=== PATIENT | female | born 1985 | race African-American/Black ===

== ENCOUNTER 2024-05-31 11:20 | Emergency (ER) | payer MEDICAID ==
[~2024-05-31] VITALS: Ht 170.2 cm; Wt 84.0 kg
[2024-05-31 11:22] VITALS: BP 137/106; PULSE 106; RESP 18; TEMP 36.8; O2SAT 100
== END 2024-05-31 11:49 | disposition left against medical advice (07) ==
LOC: ER 11:20
DX: M25.572 Pain in left ankle and joints of left foot (principal); W01.0XXA Fall on same level from slipping, tripping and stumbling without subsequent striking against object, initial encounter; Y93.89 Activity, other specified; Y92.89 Other specified places as the place of occurrence of the external cause; Y99.8 Other external cause status
CPT/HCPCS: 99283

== ENCOUNTER 2024-06-01 02:26 | Emergency (ER) | payer MEDICAID ==
[~2024-06-01] VITALS: Ht 167.6 cm; Wt 64.0 kg
[2024-06-01 02:38] VITALS: BP 149/91; PULSE 108; RESP 20; TEMP 36.7; O2SAT 97
== END 2024-06-01 02:48 | disposition left against medical advice (07) ==
LOC: ER 02:26
DX: J11.1 Influenza due to unidentified influenza virus with other respiratory manifestations (principal); Z53.21 Procedure and treatment not carried out due to patient leaving prior to being seen by health care provider

== ENCOUNTER 2024-06-13 15:58 | Emergency (ER) | payer MEDICAID ==
[~2024-06-13] VITALS: Ht 167.6 cm; Wt 75.0 kg
[~2024-06-13 15:58] MED LIST: ENOX40SY27 SQ; FURO-151 PO
[2024-06-13 16:03] VITALS: O2SAT 97
[2024-06-13 16:23] VITALS: BP 125/89; PULSE 101; RESP 14; TEMP 36.9; O2SAT 97
== END 2024-06-13 18:11 | disposition left against medical advice (07) ==
LOC: ER 15:58
DX: R26.2 Difficulty in walking, not elsewhere classified (principal); I50.9 Heart failure, unspecified; I25.10 Atherosclerotic heart disease of native coronary artery without angina pectoris; Z88.5 Allergy status to narcotic agent; Z53.21 Procedure and treatment not carried out due to patient leaving prior to being seen by health care provider
CPT/HCPCS: 99283

== ENCOUNTER 2024-06-19 11:18 | Emergency (ER) | payer OTHER ==
[~2024-06-19] VITALS: Ht 165.1 cm; Wt 68.0 kg
[2024-06-19 11:21] VITALS: TEMP 36.9; O2SAT 98
[2024-06-19] MEDS ORDERED: TOPUD PO (11:30)
[2024-06-19] MEDS: ACETAMINOPHEN 325MG TABLET PO ONE (11:54)
[2024-06-19 12:00] VITALS: BP 136/109; PULSE 95; RESP 16; O2SAT 100
== END 2024-06-19 11:59 | disposition home or self-care (01) ==
LOC: ER 11:18
DX: M54.9 Dorsalgia, unspecified (principal); Z88.5 Allergy status to narcotic agent; Z88.8 Allergy status to other drugs, medicaments and biological substances; Z98.890 Other specified postprocedural states; W01.0XXA Fall on same level from slipping, tripping and stumbling without subsequent striking against object, initial encounter; Y93.89 Activity, other specified; Y92.89 Other specified places as the place of occurrence of the external cause; Y99.8 Other external cause status
CPT/HCPCS: 99283

== ENCOUNTER 2024-06-19 19:04 | Emergency (ER) | payer MEDICAID, OTHER ==
[~2024-06-19] VITALS: Ht 167.6 cm; Wt 70.0 kg
[~2024-06-19 19:04] MED LIST changes: +TOPUD PO
[2024-06-19 19:11] VITALS: O2SAT 95
[2024-06-19] MEDS: ACETAMINOPHEN 500MG TABLET PO ONE (21:53)
[2024-06-19 22:41] LABS: CHLORIDE 106 mEq/L (98-107); POTASSIUM 3.7 mEq/L (3.5-5.1); SODIUM 141 mEq/L (136-145)
[2024-06-19 22:42] LABS: CALCIUM 8.4 mg/dL (8.7-10.4); CARBON DIOXIDE 22 mEq/L (21-32)
[2024-06-19 22:44] LABS: HEMATOCRIT 38.4 % (36.0-48.0); HEMOGLOBIN 11.9 g/dL (12.0-16.0); MEAN CORPUSCULAR HEMOGLOBIN 26.7 pg (28.0-32.0); PLATELET 237 x1000/uL (130-400); RED BLOOD CELL COUNT 4.47 mill/uL (4.2-5.4); RED CELL DISTRIBUTION WIDTH 19.8 % (11.6-14.6); WHITE BLOOD COUNT 7.4 x1000/uL (4.5-11.0)
[2024-06-19 22:47] LABS: CREATININE 0.9 mg/dL (0.6-1.0); GLUCOSE 81 mg/dL (70-105); UREA NITROGEN BLOOD 12 mg/dL (9-23)
[2024-06-19 22:49] LABS: CREATINE KINASE 322 IU/L (34-145)
[2024-06-19 22:51] LABS: HCG SCREEN NEGATIVE
[2024-06-19 23:12] VITALS: BP 130/76; PULSE 100; RESP 16; TEMP 37.1; O2SAT 95
[2024-06-25] MEDS ORDERED: LOSA25TA26 MT (10:31)
[2024-06-25] MEDS ORDERED: POTA-205 MT (10:31)
[2024-06-25] MEDS ORDERED: FURO-151 MT (10:31)
[2024-06-25] MEDS ORDERED: CARV12.545 MT (10:31)
== END 2024-06-20 00:33 | disposition home or self-care (01) ==
LOC: ER 19:04
DX: M79.10 Myalgia, unspecified site (principal); F19.90 Other psychoactive substance use, unspecified, uncomplicated; Z88.5 Allergy status to narcotic agent
CPT/HCPCS: 36415; 80048; 82550; 84703; 85027; 99283

== ENCOUNTER 2024-06-20 15:14 | Emergency (ER) | payer OTHER ==
[~2024-06-20] VITALS: Ht 165.1 cm; Wt 91.0 kg
[2024-06-20 15:26] VITALS: BP 154/114; PULSE 110; RESP 18; TEMP 37.1; O2SAT 100
[2024-06-25] MEDS ORDERED: FURO-151 MT (10:31)
[2024-06-25] MEDS ORDERED: CARV12.545 MT (10:31)
[2024-06-25] MEDS ORDERED: LOSA25TA26 MT (10:31)
[2024-06-25] MEDS ORDERED: POTA-205 MT (10:31)
== END 2024-06-20 21:19 | disposition left against medical advice (07) ==
LOC: ER 15:14
DX: I50.9 Heart failure, unspecified (principal); Z88.5 Allergy status to narcotic agent; Z88.6 Allergy status to analgesic agent; W18.30XA Fall on same level, unspecified, initial encounter; Y93.89 Activity, other specified; Y92.89 Other specified places as the place of occurrence of the external cause; Y99.8 Other external cause status
CPT/HCPCS: 71045; 99283

== ENCOUNTER 2024-06-21 06:15 | Inpatient (IN) | payer OTHER ==
[~2024-06-21] VITALS: Ht 172.7 cm; Wt 68.0 kg
[2024-06-21 06:17] VITALS: O2SAT 100
[2024-06-21] MEDS ORDERED: ENALAPRIL 2.5MG/2ML VIAL 2ML IV ONE (07:45)
[2024-06-21] MEDS: FUROSEMIDE 40MG/4ML VIAL IVP ONE (10:00)
[2024-06-21] MEDS: ENALAPRIL 1.25MG/ML VIAL 1ML IV NR (10:00)
[2024-06-21 11:57] VITALS: BP 142/102; PULSE 111; RESP 20; TEMP 37; O2SAT 96
[2024-06-21] MEDS: AMLODIPINE 10MG TABLET PO SCH (13:45)
[2024-06-21] MEDS ORDERED: CLONIDINE 0.1MG TABLET PO PRN (13:45)
[2024-06-21 16:28] VITALS: BP 106/73; PULSE 116; RESP 20; TEMP 37.1; O2SAT 96
[2024-06-21 18:25] LABS: BASOPHILS % 0.8 % (0.0-2.0); EOSINOPHILS % 0.2 % (0.0-5.0); HEMATOCRIT. 40.3 % (36.0-48.0); HEMOGLOBIN. 12.5 g/dL (12.0-16.0); LYMPHOCYTES % 12.6 % (20.0-50.0); MEAN CORPUSCULAR HEMOGLOBIN 26.6 pg (28.0-32.0); MEAN CORPUSCULAR VOLUME 85.9 fL (81.0-99.0); MEAN PLATELET VOLUME 9.2 fl (7.4-10.4); MONOCYTES % 13.2 % (2.0-8.0); NEUTROPHILS % 73.2 % (40.0-76.0); PLATELET 247 x1000/uL (130-400)
[2024-06-21 18:34] LABS: CHLORIDE 104 mEq/L (98-107); DIFFERENTIAL COMMENT 1; POTASSIUM 4.1 mEq/L (3.5-5.1); SODIUM 139 mEq/L (136-145)
[2024-06-21 18:35] LABS: CARBON DIOXIDE 22 mEq/L (21-32)
[2024-06-21 18:36] LABS: CALCIUM 8.1 mg/dL (8.7-10.4)
[2024-06-21 18:40] LABS: CREATININE 1.1 mg/dL (0.6-1.0); GLUCOSE 99 mg/dL (70-105); UREA NITROGEN BLOOD 17 mg/dL (9-23)
[2024-06-21 18:41] LABS: ETHANOL BLOOD < 10 mg/dL (<10)
[2024-06-21 18:48] LABS: TROPONIN I HIGH SENSITIVITY 90 ng/L (3.0-34)
[2024-06-21] MEDS: FUROSEMIDE 40MG TABLET PO SCH (18:59)
[2024-06-21] MEDS: ACETAMINOPHEN 325MG TABLET PO PRN (19:07)
[2024-06-21 19:11] VITALS: BP 106/43; PULSE 99; RESP 20; TEMP 36.6
[2024-06-21 20:38] VITALS: BP 115/66; PULSE 109; RESP 19; TEMP 37.8; O2SAT 94
[2024-06-22] VITALS (7 sets, daily range): BP systolic 116–155; BP diastolic 66–103; PULSE 57–111; RESP 16–20; TEMP 35.9–37.1; O2SAT 96–100
[2024-06-22] MEDS: GUAIFENESIN 200MG/10ML SUGAR FREE UDC PO PRN (13:45)
[2024-06-22] MEDS: LORAZEPAM 0.5MG TABLET PO PRN (13:45)
[2024-06-22] MEDS ORDERED: ONDANSETRON HCL 4MG/2ML INJ IV PRN (14:45)
[2024-06-22] MEDS ORDERED: ACETAMINOPHEN 325MG TABLET PO PRN (14:45)
[2024-06-22] MEDS ORDERED: FUROSEMIDE 40MG/4ML VIAL IVP SCH (21:00)
[2024-06-22] MEDS: ATORVASTATIN CALCIUM 40MG TABLET PO SCH (21:38)
[2024-06-23] VITALS: BP 112/87; PULSE 97; RESP 18; TEMP 36.8; O2SAT 98
[2024-06-23 03:54] VITALS: BP 121/87; PULSE 100; RESP 18; TEMP 36.4; O2SAT 100
[2024-06-23 08:00] VITALS: BP 122/83; PULSE 92; RESP 18; TEMP 36.4; O2SAT 97
[2024-06-23] MEDS: PANTOPRAZOLE SODIUM 40 MG/VIAL IV SCH (09:00)
[2024-06-23] MEDS: ENOXAPARIN 40MG/0.4ML SYR SUBCUT SCH (09:00)
[2024-06-23 09:21] VITALS: BP 122/83; PULSE 92; RESP 18; TEMP 36.4; O2SAT 97
[2024-06-23] MEDS: ASPIRIN 81MG TABLET PO SCH (09:22)
[2024-06-23 12:00] VITALS: BP 120/99; PULSE 92; TEMP 36.6; O2SAT 98
[2024-06-25] MEDS ORDERED: FURO-151 MT (10:31)
[2024-06-25] MEDS ORDERED: LOSA25TA26 MT (10:31)
[2024-06-25] MEDS ORDERED: POTA-205 MT (10:31)
[2024-06-25] MEDS ORDERED: CARV12.545 MT (10:31)
== END 2024-06-23 16:40 | disposition left against medical advice (07) | DRG 190 ==
LOC: ER 06:15 → 7WST 07:44 → EDBEDREQ 07:46 → EDBEDREQTM 07:46 → ENRESERV 08:17
PROVIDERS: ADMIT Internal Medicine; ATTEND Internal Medicine
DX: I21.4 Non-ST elevation (NSTEMI) myocardial infarction (principal); J96.01 Acute respiratory failure with hypoxia; N17.9 Acute kidney failure, unspecified; I50.9 Heart failure, unspecified; R26.89 Other abnormalities of gait and mobility; Z53.29 Procedure and treatment not carried out because of patient's decision for other reasons; E78.00 Pure hypercholesterolemia, unspecified; E11.40 Type 2 diabetes mellitus with diabetic neuropathy, unspecified; Z59.00 Homelessness unspecified; Z88.5 Allergy status to narcotic agent; Z88.8 Allergy status to other drugs, medicaments and biological substances; Z86.73 Personal history of transient ischemic attack (TIA), and cerebral infarction without residual deficits; Z91.148 Patient's other noncompliance with medication regimen for other reason; Z89.411 Acquired absence of right great toe
CPT/HCPCS: 36415; 71045; 73630; 80048; 80320; 83880; 84484; 85025; 93005; 93971; 97161; 99285; J1650; J2470; J3490; G0480

== ENCOUNTER 2024-07-29 20:48 | Inpatient (IN) | payer MEDICAID, OTHER ==
[~2024-07-29] VITALS: Ht 165.1 cm; Wt 59.0 kg
[~2024-07-29 20:48] MED LIST changes: +CARV12.545 MT; +FURO-151 MT; +LOSA25TA26 MT; +POTA-205 MT
[2024-07-29 20:49] VITALS: O2SAT 99
[2024-07-29 22:14] LABS: BASOPHILS % 0.4 % (0.0-2.0); EOSINOPHILS % 0.3 % (0.0-5.0); HEMATOCRIT. 37.2 % (36.0-48.0); LYMPHOCYTES % 25.6 % (20.0-50.0); MEAN CORPUSCULAR HEMOGLOBIN 24.6 pg (28.0-32.0); MEAN CORPUSCULAR HGB CONC 29.5 g/dL (31.0-37.0); MEAN CORPUSCULAR VOLUME 83.4 fL (81.0-99.0); MEAN PLATELET VOLUME 8.8 fl (7.4-10.4); MONOCYTES % 7.9 % (2.0-8.0); NEUTROPHILS % 65.8 % (40.0-76.0); PLATELET 296 x1000/uL (130-400); RED BLOOD CELL COUNT 4.45 mill/uL (4.2-5.4); RED CELL DISTRIBUTION WIDTH 22.3 % (11.6-14.6); WHITE BLOOD COUNT 7.8 x1000/uL (4.5-11.0)
[2024-07-29 22:21] LABS: ADD RBC MORPHOLOGY YES; DIFFERENTIAL COMMENT 1
[2024-07-29 22:24] LABS: CHLORIDE 110 mEq/L (98-107); POTASSIUM 4.5 mEq/L (3.5-5.1); SODIUM 141 mEq/L (136-145)
[2024-07-29 22:25] LABS: CALCIUM 8.7 mg/dL (8.7-10.4); CARBON DIOXIDE 18 mEq/L (21-32)
[2024-07-29 22:26] LABS: HCG SCREEN NEGATIVE
[2024-07-29 22:30] LABS: CREATININE 0.9 mg/dL (0.6-1.0); ETHANOL BLOOD < 10 mg/dL (<10); GLUCOSE 107 mg/dL (70-105); UREA NITROGEN BLOOD 14 mg/dL (9-23)
[2024-07-29 22:37] LABS: TROPONIN I HIGH SENSITIVITY 59 ng/L (3.0-34)
[2024-07-29 22:42] LABS: PLATELET ESTIMATE NORMAL
[2024-07-29 22:43] LABS: ANISOCYTOSIS 2+; HYPOCHROMASIA 1+; OVALOCYTES 1+
[2024-07-29 23:09] LABS: D-DIMER 4.3 mg/L FEU (<0.50); INR 1.4
[2024-07-30 00:14] LABS: ALANINE AMINOTRANSFERASE 28 IU/L (10-49); ALBUMIN 3.9 g/dL (3.2-4.8); ASPARTATE AMINOTRANSFERASE 20 IU/L (<34); BILIRUBIN DIRECT 0.5 mg/dL (<=3.0); BILIRUBIN TOTAL 1.1 mg/dL (0.1-1.0); PROTEIN TOTAL 6.7 g/dL (6.0-8.3)
[2024-07-30] MEDS ORDERED: FUROSEMIDE 40MG/4ML VIAL IVP ONE (00:45)
[2024-07-30] MEDS ORDERED: ASPIRIN 325MG EC TABLET PO ONE (00:45)
[2024-07-30] MEDS: IOHEXOL-350 100 ML BOTTLE ONE (01:10)
[2024-07-30 01:20] VITALS: BP 136/107; PULSE 98; RESP 18; TEMP 37.1
[2024-07-30] MEDS ORDERED: ARIP10TA86 PO (03:07)
[2024-07-30] MEDS ORDERED: POTA-204 PO (03:07)
[2024-07-30] MEDS ORDERED: FURO40TA5 PO (03:07)
[2024-07-30] MEDS ORDERED: FERR325T30 PO (03:07)
[2024-07-30] MEDS ORDERED: DOXY100C5 PO (03:07)
[2024-07-30] MEDS ORDERED: APIX5TAB PO (03:07)
[2024-07-30] MEDS ORDERED: CARV6.2548 PO (03:07)
[2024-07-30] MEDS ORDERED: CITA20TA75 PO (03:07)
[2024-07-30 04:00] VITALS: BP 149/118; PULSE 109; RESP 18; TEMP 36.3; O2SAT 97
[2024-07-30] MEDS ORDERED: ONDANSETRON HCL 4MG/2ML INJ IV PRN (08:30)
[2024-07-30 08:44] VITALS: BP 139/101; PULSE 107; RESP 18; TEMP 36.4; O2SAT 98
[2024-07-30] MEDS ORDERED: ACETAMINOPHEN 325MG TABLET PO PRN (09:00)
[2024-07-30] MEDS: ACETAMINOPHEN 325MG TABLET PO PRN (10:32)
[2024-07-30] MEDS: AMLODIPINE 10MG TABLET PO SCH (10:32)
[2024-07-30] MEDS: FUROSEMIDE 40MG/4ML VIAL IVP SCH (10:33)
[2024-07-30 12:00] VITALS: BP 126/94; PULSE 99; RESP 18; TEMP 36.7; O2SAT 95
[2024-07-30 16:00] VITALS: BP 106/71; PULSE 89; RESP 20; TEMP 36.7; O2SAT 100
[2024-07-30 17:07] LABS: CLARITY URINE CLEAR (CLEAR); COLOR URINE YELLOW (YELLOW); GLUCOSE URINE NEGATIVE (NEGATIVE); KETONES URINE NEGATIVE (NEGATIVE); LEUKOCYTE ESTERASE URINE NEGATIVE (NEGATIVE); NITRITE URINE NEGATIVE (NEGATIVE); OCCULT BLOOD URINE NEGATIVE (NEGATIVE); PH URINE 5.5 (4.5-8.0); PROTEIN URINE NEGATIVE (NEGATIVE); SPECIFIC GRAVITY URINE 1.014 (1.005-1.030)
[2024-07-30 17:23] LABS: *AMPHETAMINES SCREEN URINE NEGATIVE (NEGATIVE); *BARBITURATES SCREEN URINE NEGATIVE (NEGATIVE); *BENZODIAZEPINES SCREEN URINE NEGATIVE (NEGATIVE); *COCAINE SCREEN URINE NEGATIVE (NEGATIVE); CANNABINOID URINE SCREEN NEGATIVE (NEGATIVE); ECSTASY MDMA SCREEN URINE NEGATIVE (NEGATIVE); METHADONE URINE SCREEN NEGATIVE (NEGATIVE); OPIATES URINE SCREEN NEGATIVE (NEGATIVE); PHENCYCLIDINE URINE SCREEN NEGATIVE (NEGATIVE)
[2024-07-30 20:00] VITALS: BP 103/67; PULSE 80; RESP 20; TEMP 36.7; O2SAT 97
[2024-07-30] MEDS: FUROSEMIDE 40MG TABLET PO SCH (21:08)
[2024-07-30 22:16] LABS: TROPONIN I HIGH SENSITIVITY 42 ng/L (3.0-34)
[2024-07-31] VITALS: BP 111/79; PULSE 79; RESP 19; TEMP 36.6; O2SAT 96
[2024-07-31 04:00] VITALS: BP 118/73; PULSE 88; RESP 20; TEMP 36.6; O2SAT 97
[2024-07-31 07:46] LABS: CARBON DIOXIDE 21 mEq/L (21-32); CHLORIDE 108 mEq/L (98-107); POTASSIUM 4.1 mEq/L (3.5-5.1); SODIUM 142 mEq/L (136-145)
[2024-07-31 07:47] LABS: CALCIUM 7.9 mg/dL (8.7-10.4)
[2024-07-31 07:52] LABS: CREATININE 0.8 mg/dL (0.6-1.0); GLUCOSE 84 mg/dL (70-105)
[2024-07-31 07:53] LABS: UREA NITROGEN BLOOD 15 mg/dL (9-23)
[2024-07-31 08:00] VITALS: BP 126/93; PULSE 86; RESP 18; TEMP 36.6; O2SAT 96; O2SAT 98
[2024-07-31 12:00] VITALS: BP 121/90; PULSE 84; RESP 18; TEMP 36.7; O2SAT 98
[2024-07-31 13:31] LABS: BODY FLUID RBC 855 /cu mm (0-2000); BODY FLUID WBC 167 /cu mm (0-200)
[2024-07-31 13:47] LABS: BODY FLUID MONOCYTES 59 %
[2024-07-31 16:00] VITALS: BP 125/76; PULSE 80; RESP 18; TEMP 36.8; O2SAT 98
== END 2024-07-31 19:17 | disposition left against medical advice (07) | DRG 194 ==
LOC: ER 20:48 → 7WST 07-30 00:33 → EDBEDREQ 07-30 00:37 → EDBEDREQTM 07-30 00:37 → EDBEDREQDT 07-30 00:37 → ENRESERV 07-30 00:43
PROVIDERS: ADMIT Internal Medicine; ATTEND Internal Medicine
PROC: 0W9G3ZZ Drainage of Peritoneal Cavity, Percutaneous Approach (ICD-10-PCS; principal; 2024-07-31)
DX: I11.0 Hypertensive heart disease with heart failure (principal); I21.A1 Myocardial infarction type 2; R18.8 Other ascites; I50.43 Acute on chronic combined systolic (congestive) and diastolic (congestive) heart failure; K74.60 Unspecified cirrhosis of liver; R16.0 Hepatomegaly, not elsewhere classified; D64.9 Anemia, unspecified; F17.210 Nicotine dependence, cigarettes, uncomplicated; Z53.29 Procedure and treatment not carried out because of patient's decision for other reasons; Z91.148 Patient's other noncompliance with medication regimen for other reason; Z86.711 Personal history of pulmonary embolism; Z88.5 Allergy status to narcotic agent
CPT/HCPCS: 36415; 49083; 71045; 71275; 74176; 80048; 80076; 80305; 80320; 81003; 83880; 84484; 84703; 85025; 85379; 93005; 93970; 97161; 99285; A4606; J1940; Q9967; G0480

== ENCOUNTER 2024-08-06 11:10 | Emergency (ER) | payer MEDICAID ==
[~2024-08-06] VITALS: Ht 162.6 cm; Wt 61.0 kg
[~2024-08-06 11:10] MED LIST changes: +APIX5TAB PO; +ARIP10TA86 PO; +CARV6.2548 PO; +CITA20TA75 PO; +DOXY100C5 PO; +FERR325T30 PO; +FURO40TA5 PO; +POTA-204 PO
[2024-08-06 11:13] VITALS: O2SAT 95
[2024-08-06 11:25] VITALS: BP 149/116; PULSE 118; RESP 20; TEMP 37; O2SAT 95
[2024-08-06 12:21] LABS: BASOPHILS % 0.5 % (0.0-2.0); EOSINOPHILS % 0.0 % (0.0-5.0); HEMATOCRIT. 39.1 % (36.0-48.0); HEMOGLOBIN. 11.6 g/dL (12.0-16.0); LYMPHOCYTES % 24.0 % (20.0-50.0); MEAN PLATELET VOLUME 9.1 fl (7.4-10.4); MONOCYTES % 7.1 % (2.0-8.0); NEUTROPHILS % 68.4 % (40.0-76.0); PLATELET 349 x1000/uL (130-400); RED BLOOD CELL COUNT 4.84 mill/uL (4.2-5.4); RED CELL DISTRIBUTION WIDTH 22.2 % (11.6-14.6)
[2024-08-06 12:25] LABS: CREATININE 0.9 mg/dL (0.6-1.0)
[2024-08-06 12:26] LABS: UREA NITROGEN BLOOD 13 mg/dL (9-23)
[2024-08-06 12:28] LABS: ADD RBC MORPHOLOGY YES
[2024-08-06 12:38] LABS: PLATELET ESTIMATE NORMAL
== END 2024-08-06 12:15 | disposition home or self-care (01) ==
LOC: ER 11:10
DX: I50.9 Heart failure, unspecified (principal); J18.9 Pneumonia, unspecified organism; F17.200 Nicotine dependence, unspecified, uncomplicated; F12.90 Cannabis use, unspecified, uncomplicated; Z79.899 Other long term (current) drug therapy; Z88.5 Allergy status to narcotic agent
CPT/HCPCS: 36415; 71045; 80048; 83880; 85025; 99284